=== PATIENT | male | born 1980 | race Caucasian/White ===

== ENCOUNTER 2021-04-25 13:31 | Observation (INO) ==
[2021-04-25] MEDS ORDERED: *HR* Heparin 5,000 UNIT/ML VIAL IVP PRN ×2 (15:02)
[2021-04-25] MEDS ORDERED: *HR* Heparin 5,000 UNIT/ML VIAL IVP ONE (15:02)
[2021-04-25 15:39] LABS: Hematocrit 46.2 % (37.5-50.1); Mean Corpuscular HGB Conc 32.7 g/dL (31.6-35.5); Mean Corpuscular Hemoglobin 30.9 pg (28.0-33.3); Mean Corpuscular Volume 94.7 fL (83.0-100.0); Mean Platelet Volume 9.2 fL (9.4-12.4); Platelet Count 235 K/mcL (140-400); Red Blood Count 4.88 M/mcL (4.19-5.50); Red Cell Distribution Width 13.2 % (11.5-14.5)
[2021-04-25] MEDS ORDERED: Ondansetron 4 MG/2 ML VIAL IVP PRN (15:48)
[2021-04-25] MEDS ORDERED: Naloxone 0.4 MG/ML INJ IVP PRN (15:48)
[2021-04-25] MEDS ORDERED: Acetaminophen 325 MG TABLET PO PRN (15:48)
[2021-04-25 16:00] LABS: Hemoglobin 15.1 g/dL (12.9-16.9); Heparin anti-factor XA UFH 0.05 IU/mL (0.30-0.70); INR 1.1
[2021-04-25] MEDS: Heparin 25,000UNIT/250ML 1/2NS 25,000 UNIT/250 ML IV.SOLN IVC SCH (16:03)
[2021-04-25] MEDS: *HR* OxyCODONE/APAP 5/325 TABLET PO PRN ×2 (16:46→22:29)
[2021-04-25 17:16] LABS: Alanine Aminotransferase 14 Units/L (7-52); Albumin 4.3 g/dL (3.5-5.7); Albumin/Globulin Ratio 1.2 (1.1-2.2); Alkaline Phosphatase 66 Units/L (34-104); Aspartate Amino Transferase 13 Units/L (13-39); BUN/Creatinine Ratio 9 (6-26); Bilirubin,Total 0.6 mg/dL (0.3-1.0); Blood Urea Nitrogen 8 mg/dL (6-20); Calcium 9.7 mg/dL (8.6-10.3); Carbon Dioxide 27 mEq/L (23-29); Chloride 100 mEq/L (98-107); Globulin 3.6 g/dL (2.4-3.5); Glucose 118 mg/dL (70-105); Osmolality,Calculated 279 (280-300); Potassium 4.1 mEq/L (3.5-5.1); Sodium 135 mEq/L (136-145); Total Protein 7.9 g/dL (6.4-8.9); eGFR For African Americans > 60 (> 60); eGFR For Non-African Americans > 60 (> 60)
[2021-04-26] MEDS: Heparin 25,000UNIT/250ML 1/2NS 25,000 UNIT/250 ML IV.SOLN IVC SCH (06:08)
[2021-04-26 06:16] LABS: Basophils # 0.1 K/mcL (0.0-0.2); Basophils % 0.7 %; Eosinophils # 0.4 K/mcL (0.0-0.6); Eosinophils % 3.8 %; Hematocrit 39.3 % (37.5-50.1); Hemoglobin 12.9 g/dL (12.9-16.9); Immature Granulocytes % 0.3 % (0-4); Lymphocytes # 4.2 K/mcL (0.6-4.6); Lymphocytes % 36.3 %; Mean Corpuscular HGB Conc 32.8 g/dL (31.6-35.5); Mean Corpuscular Hemoglobin 31.2 pg (28.0-33.3); Mean Corpuscular Volume 95.2 fL (83.0-100.0); Mean Platelet Volume 9.5 fL (9.4-12.4); Monocytes # 0.8 K/mcL (0.0-1.3); Monocytes % 6.8 %; Neutrophils # 6.1 K/mcL (1.6-8.9); Platelet Count 205 K/mcL (140-400); Red Blood Count 4.13 M/mcL (4.19-5.50); Red Cell Distribution Width 13.2 % (11.5-14.5); Segmented Neutrophils % 52.1 %; White Blood Count 11.7 K/mcL (4.3-11.1)
[2021-04-26] MEDS: *HR* OxyCODONE/APAP 5/325 TABLET PO PRN ×2 (06:20→12:07)
[2021-04-26 10:38] VITALS: O2SAT 95
[2021-04-26 10:40] VITALS: BP 104/69; PULSE 86; TEMP 98.3
[2021-04-26] MEDS ORDERED: Apixaban 5 MG TABLET PO SCH (13:15)
[2021-04-26] MEDS ORDERED: Budesonide/Formoterol 80/4.5 1 PUFF INH IH SCH (18:00)
== END 2021-04-26 15:11 | disposition home or self-care (01) ==
LOC: 3BNU 13:31 → EMEROOARM 13:31 → SUATTDRO 16:49 → 3BNU 18:01
PROVIDERS: ADMIT General Practice; ATTEND Internal Medicine